=== PATIENT | female | born 1985 | race Caucasian/White ===

== ENCOUNTER 2017-05-12 11:24 | Emergency (ER) | payer MEDICAID ==
[2017-05-12 11:58] VITALS: PULSE 75; RESP 16; TEMP 97.7; O2SAT 98
[2017-05-12] MEDS ORDERED: ONDANSETRON DISINTEGRATING 4 MG TAB PO ONE (13:41)
[2017-05-12] MEDS ORDERED: HYDROCODONE/APAP 10/325 TAB PO ONE (13:41)
[2017-05-12] MEDS ORDERED: HYDROCODONE/APAP 5/325 TAB PO ONE (13:48)
--- NOTE | 2017-05-12 13:48 | EDPHY ---
H & P Time Seen by Provider: 05/12/17 13:44 HPI/ROS: HPI: This is a 31-year-old female who presents with Chief Complaint: Accidental fall Location: Left wrist and left ankle Quality: Injury Duration: 1 hour prior to arrival Signs and Symptoms: Positive swelling, positive pain, no loss of consciousness , no bleeding, positive pain with movement, positive decreased range of motion, no radiation, no weakness Timing: Acute Severity: 04/30 Context: Patient states that her clogged got tripped up over this last stair and she fell forward onto cement. She placed her left hand out to brace her fall heard a crack with immediate pain in her left wrist. Denies hitting her head and no loss of consciousness. She then noted that her left ankle got tripped up on the stair, and twisted, causing pain. She was ambulatory at the scene. Able to bear weight with mild pain. Currently menstruating. Modifying Factors: ice applied Comment: ROS: Eyes: No blurred vision Respiratory: No shortness of breath, no cough Cardiovascular: No chest pain Gastrointestinal: No nausea, no vomiting no diarrhea Genitourinary: No dysuria Extremities: No myalgias Neurologic: No weakness, no numbness Skin: No rashes Hematologic: No bruising, no bleeding MEDICAL/SURGICAL HISTORY: Breast augmentation. Generally healthy. Does not taking any medications. Social History: In a relationship. Smoking Status: Never smoked Physical Exam: CONSTITUTIONAL: Pleasant adult white female, awake and alert, no obvious distress HEENT: Atraumatic and normocephalic, PERRL, EOMI. Tympanic membranes clear. . Oropharynx clear, no exudate and moist pink mucosa. Airway patent. No lymphadenopathy. No meningismus. Cardiovascular: Normal S1/S2, regular rate, regular rhythm, without murmur rub or gallop. PULMONARY/CHEST: Symmetrical and nontender. Clear to auscultation bilaterally Good air movement. No accessory muscle usage. ABDOMEN: Soft, nondistended, nontender, no rebound, no guarding, no peritoneal signs, no masses or organomegaly. No CVAT. EXTREMITIES: 2/2 pulses, no clubbing, no cyanosis or edema. left radial aspect deformity and tenderness noted; decreased flexion and extension secondary to pain. Light touch sensation intact. Left ankle lateral aspect; mild swelling; tenderness to palpation over the lateral malleolus anterior and posterior portions. Achilles intact. Plantar flexion and dorsiflexion intact. Able to move all 5 toes. NEUROLOGICAL: no focal neuro deficits. GCS 15. SKIN: Warm and dry, no erythema. no rash. Good capillary refill. Constitutional: Initial Vital Signs Temperature (C) 36.5 C 05/12/17 11:56 Heart Rate 75 05/12/17 11:56 Respiratory Rate 16 05/12/17 11:56 O2 Sat (%) 98 05/12/17 11:56 O2 Delivery Mode Room Air Allergies/Adverse Reactions: Sulfa (Sulfonamide Antibiotics) Allergy (Intermediate, Verified 08/02/14 18:37) Unknown penicillin G [Penicillin G] Allergy (Unknown, Verified 08/02/14 18:37) Unknown Home Medications: Medication Instructions Recorded Abilify 05/12/17 Hydrocodone/APAP 5/325 [[place] 1 - 2 tab PO Q4H PRN #12 tab 05/12/17 5/325 (*)] Sertraline HCl 05/12/17 Medical Decision Making Procedures: Procedure: Fracture treatment. The patient had x-rays taken and I confirmed that the patient had a fractured left distal radius. I do not believe that the patient will require reduction at a later date. A radial gutter splint was applied by the tech. After application of the splint I returned and re-examined the patient. The splint was adequately immobilizing the joint and distal to the splint the patient's circulation and sensation was intact. ED Course/Re-evaluation: Left wrist x-ray, left ankle x-ray, oral medication No signs of neurovascular compromise Left wrist x-ray shows distal radius fracture with volar angulation; placed in radial gutter splint 1340: ED decision made to consult; spoke with MARC Hernandez about case and films. She advised she will speak with her attending and call back. Dr. Cerna of agrees with a radial gutter splint and advises will see the patient back in the office in 1 week. Differential Diagnosis: ED fall differential - Data Points Medications Given: Discontinued Medications Hydrocodone Bitart/Acetaminophen ([place] 5/325) 2 tab PO EDNOW ONE Stop: 05/12/17 13:49 Last Admin: 05/12/17 13:52 Dose: 2 tab Ondansetron HCl (Zofran Odt) 4 mg PO EDNOW ONE Stop: 05/12/17 13:42 Last Admin: 05/12/17 13:51 Dose: 4 mg Departure - Departure Disposition: Home, Routine, Self-Care Clinical Impression: Closed left radial fracture Qualifiers: Encounter type: initial encounter Radius location: distal Fracture morphology: unspecified fracture morphology Qualified Code(s): S52.502A - Unspecified fracture of the lower end of left radius, initial encounter for closed fracture Condition: Good Instructions: Wrist Fracture in Adults (ED) Additional Instructions: Follow-up with Orthopedics, Dr. Cerna, in 1 week. Keep splint in place and dry until seen by Orthopedics. Referrals: [facility] [Other] - As per Instructions Dominik Cerna MD [Medical Doctor] - 5-7 days, call for appt. Prescriptions: Hydrocodone/APAP 5/325 [[place] 5/325 (*)] 1 - 2 tab PO Q4H PRN #12 tab PRN Reason: Pain, Moderate
== END 2017-05-12 15:22 | disposition home or self-care (01) ==
PROC: 2W3DX1Z Immobilization of Left Lower Arm using Splint (ICD-10-PCS; principal; 2017-05-12)
DX: S52.502A Unspecified fracture of the lower end of left radius, initial encounter for closed fracture (principal); W01.0XXA Fall on same level from slipping, tripping and stumbling without subsequent striking against object, initial encounter; Y92.009 Unspecified place in unspecified non-institutional (private) residence as the place of occurrence of the external cause

== ENCOUNTER 2018-01-17 09:04 | Emergency (ER) | payer MEDICAID ==
--- NOTE | 2018-01-17 09:40 | EDPHY ---
H & P Stated Complaint: PTSD/HYPERVIFGILANCE/NOT SLEEPING/ HAS BEEN CHANGING MEDS Time Seen by Provider: 01/17/18 09:16 HPI/ROS: CHIEF COMPLAINT: Anxiety, insomnia HISTORY OF PRESENT ILLNESS: The patient has a history of PTSD, depression and anxiety. The patient recently attempted to stop taking her Abilify and sertraline secondary to waking. She briefly was on Wellbutrin however developed symptoms of palpitations. She discontinue that medications and recently resumed her Abilify and sertraline. She presents to the ED because she has had insomnia for the past 3 days, symptoms of "hypervigilance" worsening anxiety and slight depression. The patient denies any suicidal or homicidal ideation. She [facility]. REVIEW OF SYSTEMS: A comprehensive 10 point review of systems is otherwise negative aside from elements mentioned in the history of present illness. Source: Patient Exam Limitations: No limitations - Personal History LMP (Females 10-55): 8-14 Days Ago Current Tetanus/Diphtheria Vaccine: No - Medical/Surgical History Hx Asthma: No Hx Chronic Respiratory Disease: No Hx Diabetes: No Hx Cardiac Disease: No Hx Renal Disease: No Hx Cirrhosis: No Hx Alcoholism: No Hx HIV/AIDS: No Hx Splenectomy or Spleen Trauma: No Other PMH: depression PTSD - Social History Smoking Status: Never smoked - Physical Exam Exam: General Appearance: Alert, no distress Eyes: Pupils equal and round no pallor or injection ENT, Mouth: Mucous membranes moist Respiratory: There are no retractions, lungs are clear to auscultation Cardiovascular: Regular rate and rhythm Gastrointestinal: Abdomen is soft and nontender, no masses, bowel sounds normal Neurological: 5/5 strength all 4 extremities Skin: Warm and dry, no rashes Musculoskeletal: Neck is supple nontender Extremities: symmetrical, full range of motion Psychiatric: Endorses anxiety, depression, denies suicidal ideation Constitutional: Initial Vital Signs Temperature (C) 36.5 C 01/17/18 09:07 Heart Rate 79 01/17/18 09:07 Respiratory Rate 18 01/17/18 09:07 Blood Pressure 118/75 01/17/18 09:07 O2 Sat (%) 96 01/17/18 09:07 O2 Delivery Mode Room Air Allergies/Adverse Reactions: Sulfa (Sulfonamide Antibiotics) Allergy (Intermediate, Verified 01/17/18 09:05) Unknown penicillin G [Penicillin G] Allergy (Unknown, Verified 01/17/18 09:05) Unknown Home Medications: Medication Instructions Recorded Abilify 05/12/17 Sertraline HCl 05/12/17 LORazepam [Ativan] 1 mg PO BID PRN #8 tab 01/17/18 Wellbutrin 100mg (*) 01/17/18 Medical Decision Making ED Course/Re-evaluation: The patient presents the emergency department with symptoms of anxiety and self described "hypervigilance." She is not suicidal, homicidal or gravely disabled. The patient is currently on Abilify and sertraline for her underlying depression, anxiety and PTSD. The patient was given 1 mg of oral Ativan in the emergency department. I re-evaluated the patient at 11:00 a.m.. She is feeling better. Re-evaluation at 12:00 p.m.. The patient would like to be discharged home. She is given a short course of Ativan. [facility] She is encouraged to follow up with [facility]. She is given customary aftercare instructions and return precautions. Differential Diagnosis: Differential diagnosis considered includes depression, anxiety, bipolar mood disorder - Data Points Medications Given: Discontinued Medications Lorazepam (Ativan) 1 mg PO EDNOW ONE Stop: 01/17/18 09:54 Last Admin: 01/17/18 09:55 Dose: 1 mg Departure - Departure Disposition: Home, Routine, Self-Care Clinical Impression: Anxiety Condition: Good Instructions: Anxiety (ED) Additional Instructions: 1 [facility] does operate a 13/04 psychiatric crisis unit located at [address] [place] [address]. The telephone number for the 24 hour crisis center is [phone]. 2. Please return to the ED if you are feeling suicidal, having thoughts of harming yourself/others or should you feel unsafe or have worsening symptoms. 3. Please contact [facility] to schedule a follow-up appointment next week. Please be sure to tell them that you are in the emergency department this weekend. 4. Ativan as prescribed for anxiety. This is a appropriate medication to use for short periods of time. Prolonged use can result in worsening anxiety and dependence. Referrals: [facility],. [Clinic] - As per Instructions [facility] [[facility] - As per Instructions
[2018-01-17] MEDS ORDERED: LORazepam 1 MG TAB PO ONE (09:53)
[2018-01-17 12:02] VITALS: BP 108/72
== END 2018-01-17 12:00 | disposition home or self-care (01) ==
DX: F41.9 Anxiety disorder, unspecified (principal)

== ENCOUNTER 2018-01-25 18:54 | Emergency (ER) | payer MEDICAID ==
--- NOTE | 2018-01-25 19:11 | EDPHY ---
H & P Time Seen by Provider: 01/25/18 19:18 HPI/ROS: HPI CHIEF COMPLAINT: Ran out of Abilify increased anxiety HISTORY OF PRESENT ILLNESS: Patient very pleasant 32-year-old female she has a history of PTSD and anxiety, also major depressive disorder, she presents emergency room stating that she had trouble feeling her Abilify that her insurance company will not approve it. She has been out of it for 3 days and feeling like she is going to withdrawal of it. She is due to follow up with her prescriber later this week. She decided come the emergency room as she does not know what to do about not taking her Abilify and feeling increased anxiety. She denies wanting to hurt herself or anybody else. Denies feeling more depressed. She has been taking Abilify 4 mg a day for 1 year. Past Medical History: PTSD, major depressive disorder, anxiety Past Surgical History: No recent surgery Social History: Lives locally denies drugs alcohol tobacco. Family History: Noncontributory ROS REVIEW OF SYSTEMS: A comprehensive 10 point review of systems is otherwise negative aside from elements mentioned in the history of present illness. Exam Constitutional appears well nontoxic no acute distress triage nursing summary reviewed, vital signs reviewed, awake/alert. Eyes normal conjunctivae and sclera, EOMI, PERRLA. HENT normal inspection, atraumatic, moist mucus membranes, no epistaxis, neck supple/ no meningismus, no raccoon eyes. Respiratory clear to auscultation bilaterally, normal breath sounds, no respiratory distress, no wheezing. Cardiovascular rate normal, regular rhythm, no murmur, no edema, distal pulses normal. Gastrointestinal soft, non-tender, no rebound, no guarding, normal bowel sounds, no distension, no pulsatile mass. Genitourinary no CVA tenderness. Musculoskeletal no midline vertebral tenderness, full range of motion, no calf swelling, no tenderness of extremities, no meningismus, good pulses, neurovascularly intact. Skin pink, warm, & dry, no rash, skin atraumatic. Neurologic awake, alert and oriented x 3, AAOx3, moves all 4 extremities equally, motor intact, sensory intact, CN II-XII intact, normal cerebellar, normal vision, normal speech. Psychiatric normal mood/affect. Heme/Lymph/Immune no lymphadenopathy. Differential Diagnosis: Includes but is not limited to in a particular order medication refill, need for medication refill, increased anxiety Medical Decision Making: Plan for this patient will give a p.o. Dose of 4 mg Abilify here in emergency room., prescription for limited supply of Abilify 5 mg daily until she can see her prescriber later this week. Re-evaluation: Return precautions discussed with her. She understands return emergency room if develops any worsening symptoms includes increased anxiety. Wanting to hurt herself or any thoughts of wanting to hurt herself or anybody else. Source: Patient - Medical/Surgical History Hx Asthma: No Hx Chronic Respiratory Disease: No Hx Diabetes: No Hx Cardiac Disease: No Hx Renal Disease: No Hx Cirrhosis: No Hx Alcoholism: No Hx HIV/AIDS: No Hx Splenectomy or Spleen Trauma: No Other PMH: depression PTSD - Social History Smoking Status: Never smoked Constitutional: Initial Vital Signs Temperature (C) 36.8 C 01/25/18 19:13 Heart Rate 85 01/25/18 19:13 Respiratory Rate 16 01/25/18 19:13 Blood Pressure 117/80 01/25/18 19:13 O2 Sat (%) 98 01/25/18 19:13 O2 Delivery Mode Room Air Allergies/Adverse Reactions: Sulfa (Sulfonamide Antibiotics) Allergy (Intermediate, Verified 01/25/18 19:12) Unknown penicillin G [Penicillin G] Allergy (Unknown, Verified 01/25/18 19:12) Unknown Home Medications: Medication Instructions Recorded Abilify 05/12/17 Sertraline HCl 05/12/17 LORazepam [Ativan] 1 mg PO BID PRN #8 tab 01/17/18 Wellbutrin 100mg (*) 01/17/18 ARIPiprazole [Abilify 5 mg (*)] 5 mg PO DAILY #7 tab 01/25/18 Departure - Departure Disposition: Home, Routine, Self-Care Clinical Impression: Medication refill Condition: Good Instructions: Medicine Refill (ED) Additional Instructions: 1. Follow up with her primary care doctor. 2. Return emergency room if there is any worsening symptoms questions or concerns. 3. Abilify as prescribed. Referrals: NONE *PRIMARY CARE P,. [Primary Care Provider] - As per Instructions Prescriptions: ARIPiprazole [Abilify 5 mg (*)] 5 mg PO DAILY #7 tab
[2018-01-25] MEDS ORDERED: ARIPiprazole 2 MG TAB PO SCH (19:15)
[2018-01-25 19:24] VITALS: BP 109/66
== END 2018-01-25 19:37 | disposition home or self-care (01) ==
DX: F41.9 Anxiety disorder, unspecified (principal)

== ENCOUNTER 2019-02-04 23:15 | Emergency (ER) | payer MEDICAID ==
[2019-02-04] MEDS ORDERED: NITROFURANTOIN MACROBID 100 MG CAP PO ONE (23:53)
[2019-02-04] MEDS ORDERED: NITROFURANTOIN 100MG PREPACK#2 BTL TAKEHOME ONE (23:53)
[2019-02-04] MEDS ORDERED: PHENAZOPYRIDINE HCL 200 MG TAB PO ONE (23:54)
--- NOTE | 2019-02-04 23:59 | EDPHY ---
General Time Seen by Provider: 02/04/19 23:27 Narrative: CLINICAL IMPRESSION: Acute cystitis, positive urine and serum HCG in setting of recent termination ASSESSMENT/PLAN: 33-year-old female presents to the emergency department with less than 24 hr of dysuria and suprapubic discomfort. Patient had a voluntary, medically induced termination of a 6 week approximately 2 and half to 3 weeks ago. She reports her vaginal bleeding stopped yesterday and she has no nausea, vomiting, breast tenderness, or pelvic cramping. She missed a follow-up appointment today with the clinic. Repeat serum HCG level today is 123.27. I have recommended she contact her primary gynecology clinic to review today's level compared to level prior to termination. She was started on Macrobid and given prescriptions for both Macrobid and Pyridium. Urine culture ordered. Warning signs return to ED sooner discussed discharge. ED PROCEDURES: See lab and/or imaging results below CHIEF COMPLAINT: UTI symptoms HPI: 33-year-old female presents to the emergency department with less than 24 hr of dysuria, suprapubic abdominal discomfort, and urinary frequency. Patient reports that she had a voluntary medically induced, termination of a 6 week approximately 3 weeks ago. She stopped bleeding yesterday. She has no pelvic cramping, discharge, flank pain, nausea, vomiting, fever, chills. She has some mild URI symptoms. She has been sexually active since her termination. She missed a follow-up appointment with that clinic today. PAST MEDICAL HISTORY: Recent termination, depression, PTSD See triage summary and nurse notes for addition applicable history REVIEW OF SYSTEMS: A full 10 point review of systems was negative except for those mentioned in HPI. PHYSICAL EXAM: General Appearance: Alert, oriented, appropriate, cooperative, NAD, well hydrated, non-toxic appearing, VSS, no hypoxia. Gastrointestinal: Abdomen is soft, nontender, bowel sounds normal, no masses/ hernia, no rigidity, guarding or focal peritoneal findings. No flank pain. exam not performed Skin: Warm, dry, no rashes, no nodules on palpation. MEDICAL DECISION MAKING: Patient was seen independently. Secondary supervising physician at time of evaluation was: Dr Sapp. Diagnosis: Acute Cystitis, Positive urine and serum HCG . New, requires workup Summary: See Assessment and Plan for summary of ED visit Clinical lab tests: ordered / reviewed. Patient Progress: Stable for discharge. - History Smoking Status: Never smoked - Objective Vital Signs: Initial Vital Signs Temperature (C) 36.7 C 02/04/19 23:17 Heart Rate 80 02/04/19 23:17 Respiratory Rate 16 02/04/19 23:17 Blood Pressure 111/84 H 02/04/19 23:17 O2 Sat (%) 94 02/04/19 23:17 O2 Delivery Mode Room Air Allergies/Adverse Reactions: Sulfa (Sulfonamide Antibiotics) Allergy (Intermediate, Verified 02/04/19 23:16) Unknown penicillin G [Penicillin G] Allergy (Unknown, Verified 02/04/19 23:16) Unknown Home Medications: Medication Instructions Recorded Nitrofurantoin Macrobid [Macrobid] 100 mg PO BID 14 Days cap 02/05/19 Phenazopyridine HCl [Pyridium] 200 mg PO TID PRN #6 tablet 02/05/19 Laboratory Results: 02/04/19 02/04/19 02/04/19 23:59 23:20 23:20 Beta HCG, Quant 123.27 mIU/mL H mIU/mL (0.00-4.83) Urine Color YELLOW Urine Appearance MODERATELY TURBID Urine pH 5.0 (5.0-7.5) Ur Specific Whitney 1.029 (1.002-1.030) Urine Protein NEGATIVE (NEGATIVE) Urine Ketones TRACE H (NEGATIVE) Urine Blood NEGATIVE (NEGATIVE) Urine Nitrate NEGATIVE (NEGATIVE) Urine Bilirubin NEGATIVE (NEGATIVE) Urine Urobilinogen 2.0 EU H EU (0.2-1.0) Ur Leukocyte Esterase 1+ H (NEGATIVE) Urine RBC 1-3 /hpf /hpf (0-3) Urine WBC 50-182 /hpf H /hpf (0-3) Ur Epithelial Cells 1+ /lpf /lpf (NONE-1+) Urine Bacteria TRACE /hpf H /hpf (NONE SEEN) Urine Mucus 2+ /lpf H /lpf (NONE-1+) Urine Glucose NEGATIVE (NEGATIVE) Urine Test POSITIVE Medications Given: Discontinued Medications Nitrofurantoin (Macrobid 100mg Prepack#2) 1 btl TAKEHOME EDNOW ONE PRN Reason: Protocol Stop: 02/04/19 23:54 Last Admin: 02/05/19 00:05 Dose: 1 btl Nitrofurantoin Macrocrystals (Macrobid) 100 mg PO EDNOW ONE PRN Reason: Protocol Stop: 02/04/19 23:54 Last Admin: 02/05/19 00:04 Dose: 100 mg Phenazopyridine HCl (Pyridium) 200 mg PO EDNOW ONE Stop: 02/04/19 23:55 Last Admin: 02/05/19 00:05 Dose: 200 mg Departure - Departure Disposition: Home, Routine, Self-Care Clinical Impression: Positive test UTI (urinary tract infection) Qualifiers: Urinary tract infection type: acute cystitis Hematuria presence: without hematuria Qualified Code(s): N30.00 - Acute cystitis without hematuria Condition: Good Instructions: Nitrofurantoin (By mouth), Urinary Tract Infection in Women (DC) Additional Instructions: DISCHARGE INSTRUCTIONS FROM YOUR DOCTOR Thank you for visiting our emergency department today. You were treated by a physician assistant store manager sales today and your case was reviewed with our ED Attending physician. Please keep in mind that discharge from the emergency department does not mean that there is nothing wrong - it simply means that we have not identified an emergency condition that requires further evaluation or treatment in the hospital. You should always plan to follow up with primary care for re- evaluation of your condition in the next 2-3 days. If you have been referred to a specialist, please call as soon as possible (today or tomorrow) to schedule your follow up appointment at the appropriate time. YOU HAVE A URINARY TRACT INFECTION TONIGHT THAT IS BEING TREATED WITH ANTIBIOTICS. A URINE CULTURE IS ORDERED. YOUR URINE TEST IS POSITIVE HOWEVER THIS MAY BE DUE TO RECENT TERMINATION AND WE RECOMMEND REVIEWING TODAY'S BLOOD HCG RESULTS WITH YOUR PRIMARY CLINIC TO DETERMINE IF THESE ARE TRENDING DOWN. TODAY'S HCG LEVEL WAS 123.27 RETURN TO THE EMERGENCY DEPARTMENT FOR SEVERE LOWER ABDOMINAL PELVIC CRAMPING, FLANK PAIN, FEVER OR CHILLS, NAUSEA OR VOMITING, RECURRENT VAGINAL BLEEDING OR ANY OTHER CONCERN. People present with illnesses and injuries in different ways, and it is always possible that we have missed something. You may always return for re-evaluation if symptoms worsen or if they are not improving or if you develop new/different symptoms. Again, thank you for choosing our emergency department. We hope that you feel better. Referrals: NONE *PRIMARY CARE P,. [Primary Care Provider] - As per Instructions Prescriptions: Nitrofurantoin Macrobid [Macrobid] 100 mg PO BID 14 Days cap Phenazopyridine HCl [Pyridium] 200 mg PO TID PRN #6 tablet PRN Reason: Pain, Breakthrough
[2019-02-05 01:24] VITALS: BP 112/69
== END 2019-02-05 01:22 | disposition home or self-care (01) ==
DX: N30.00 Acute cystitis without hematuria (principal)